=== PATIENT | male | born 1960 | race Hispanic/Latino ===

== ENCOUNTER 2024-06-01 18:30 | Emergency (ER) | payer BC ==
[~2024-06-01] VITALS: Ht 175.3 cm; Wt 83.9 kg
[2024-06-01 20:13] LABS: BASOPHILS # (AUTO) 0.02 K/uL (0.00-0.20); BASOPHILS % (AUTO) 0.2 % (0.0-5.0); EOSINOPHILS # (AUTO) 0.17 K/uL (0.00-0.70); EOSINOPHILS % (AUTO) 2.1 % (0.0-8.0); HEMATOCRIT 41.4 % (42-54); IMMATURE GRANULOCYTE ABSOLUTE 0.03 K/uL (0-1); LYMPHOCYTES # (AUTO) 2.3 K/uL (1.0-4.8); MEAN CORPUSCULAR HEMOGLOBIN 32.4 pg (27.0-33.0); MEAN CORPUSCULAR HGB CONC 35.7 g/dL (32.0-36.0); MEAN CORPUSCULAR VOLUME 90.6 fL (79-99); MONOCYTES # (AUTO) 0.4 K/uL (0.1-1.0); MONOCYTES % (AUTO) 4.8 % (3.0-13.0); NEUTROPHILS # (AUTO) 5.2 K/uL (1.8-7.7); NEUTROPHILS % (AUTO) 64.5 % (40.0-77.0); PLATELET COUNT (AUTO) 166 K/uL (130-400); RED BLOOD CELL COUNT(AUTO) 4.57 MIL/uL (4.50-6.20); RED CELL DISTRIBUTION WIDTH 11.9 % (11.0-15.5); WHITE BLOOD COUNT (AUTO) 8.1 K/uL (4.8-10.8)
[2024-06-01 20:25] LABS: CREATININE 0.8 mg/dL (0.5-1.3); POTASSIUM 3.4 mmol/L (3.5-5.1)
[2024-06-01] MEDS ORDERED: cloPIDOgrel 75MG TAB PO ONE (20:30)
[2024-06-01] MEDS ORDERED: ASPIRIN 325MG TAB PO ONE (20:30)
[2024-06-01] MEDS: cloPIDOgrel 300MG TAB PO ONE (20:44)
[2024-06-01] MEDS: ASPIRIN 81MG CHEW TAB PO ONE (20:44)
[2024-06-01] MEDS ORDERED: IOHEXOL-350 75 ML VIAL IV ONE (20:52)
[2024-06-02 01:50] VITALS: TEMP 97.5
[2024-06-02 04:06] VITALS: BP 128/73; PULSE 72; RESP 18; O2SAT 97
== END 2024-06-02 04:09 | disposition short-term general hospital (02) ==
LOC: EDH 18:30
DX: R47.81 Slurred speech (principal); R53.1 Weakness; E11.9 Type 2 diabetes mellitus without complications; I10 Essential (primary) hypertension; E78.5 Hyperlipidemia, unspecified; F17.200 Nicotine dependence, unspecified, uncomplicated
CPT/HCPCS: 99285; 70496; 71045; 84484; 80048; 85025; 82948; 36415; 70498; 93005; 70450; Q9967